=== PATIENT | male | born 1970 | race Asian ===

== ENCOUNTER 2022-03-22 06:41 | Emergency (ER) | payer OTHER ==
[2022-03-22 06:52] VITALS: BP 110/71
[2022-03-22] MEDS ORDERED: ACETAMINOPHEN 500 MG TABLET (FP) PO ONE (07:52)
[2022-03-22] MEDS ORDERED: ACETAMINOPHEN 500 MG TABLET (FP) ONE (08:29)
[2022-03-22 08:56] VITALS: PULSE 94; TEMP 98.4
[2022-03-23 13:07] LABS: SARS-CoV-2 NAA Detected (Not Detected)
== END 2022-03-22 09:08 | disposition home or self-care (01) ==
LOC: JER 06:41
DX: U07.1 COVID-19 (principal); R05.1 Acute cough; J06.9 Acute upper respiratory infection, unspecified
CPT/HCPCS: 87804; 99283-25; C9803-CS; U0003; U0005

== ENCOUNTER 2022-06-05 18:17 | Emergency (ER) | payer OTHER ==
[2022-06-05 19:04] VITALS: BP 117/62; PULSE 103; TEMP 97.7; BMI 33.4
[2022-06-05] MEDS ORDERED: diazePAM 5 MG TABLET PO ONE (21:40)
[2022-06-05] MEDS ORDERED: KETOROLAC TROMETHAMINE 30 MG/1 ML VIAL IM ONE (21:40)
[2022-06-05] MEDS ORDERED: KETOROLAC TROMETHAMINE 30 MG/1 ML VIAL IVPUSH ONE (22:08)
[2022-06-05] MEDS ORDERED: KETOROLAC TROMETHAMINE 30 MG/1 ML VIAL ONE (22:13)
[2022-06-05] MEDS ORDERED: diazePAM 5 MG TABLET ONE (22:13)
[2022-06-05 22:26] LABS: BASO % 0.6 % (0-2.0); EOS % 4.9 % (0-4.5); HEMATOCRIT 44.2 % (35.4-49); HEMOGLOBIN 14.4 GM/dL (11.7-16.9); LYMPH % 28.5 % (8-40); MCH 24.9 pg (25.7-33.7); MCHC 32.7 g/dl (32.0-35.9); MEAN CELL VOLUME 76.3 fl (80-96); MONO % 6.7 % (3.8-10.2); NEUT % 59.3 % (42.8-82.8); PH,URINE 5.5 (5.0-8.0); PLATELET COUNT 292 10^3/uL (134-434); RBC 5.79 M/mm3 (4.00-5.60); URINE APPEARANCE CLEAR; URINE BILIRUBIN NEGATIVE (NEGATIVE); URINE COLOR YELLOW; URINE GLUCOSE (UA) NEGATIVE (NEGATIVE); URINE KETONE TRACE (NEGATIVE); URINE LEUK ESTERASE NEGATIVE (NEGATIVE); URINE NITRITE NEGATIVE (NEGATIVE); URINE PROTEIN NEGATIVE (NEGATIVE); URINE UROBILINOGEN 0.2 mg/dL (0.2-1.0); WHITE BLOOD COUNT 10.3 K/mm3 (4.0-10.0)
[2022-06-05 22:48] LABS: ALBUMIN 3.9 g/dl (3.4-5.0); BLOOD UREA NITROGEN 16.3 mg/dL (7-18)
[2022-06-05 22:52] LABS: BILIRUBIN,TOTAL 0.2 mg/dL (0.2-1); TOT PROT 7.6 g/dl (6.4-8.2)
[2022-06-05] MEDS ORDERED: morphine CARPU-JECT 4 MG/1 ML DISP.SYRIN IVPUSH ONE (22:57)
[2022-06-05] MEDS ORDERED: morphine SULFATE 4 MG/ML VIAL ONE (23:32)
== END 2022-06-06 00:58 | disposition home or self-care (01) ==
LOC: JER 18:17
PROC: 3E0333Z Introduction of Anti-inflammatory into Peripheral Vein, Percutaneous Approach (ICD-10-PCS; principal; 2022-06-05)
PROC: 3E033NZ Introduction of Analgesics, Hypnotics, Sedatives into Peripheral Vein, Percutaneous Approach (ICD-10-PCS; 2022-06-05)
DX: R10.9 Unspecified abdominal pain (principal)
CPT/HCPCS: 36415; 74177-TC; 80053; 81003; 85025; 99285-25; Q9967

== ENCOUNTER 2023-01-08 09:16 | Emergency (ER) | payer OTHER ==
[2023-01-08 09:27] VITALS: BP 135/88; PULSE 102; RESP 18; TEMP 97.6; BMI 32.9
[2023-01-08] MEDS ORDERED: KETOROLAC TROMETHAMINE 30 MG/1 ML VIAL IM ONE (12:02)
== END 2023-01-08 12:33 | disposition home or self-care (01) ==
LOC: JER 09:16 → JERFT 09:16
PROC: 3E023GC Introduction of Other Therapeutic Substance into Muscle, Percutaneous Approach (ICD-10-PCS; principal; 2023-01-08)
DX: B34.9 Viral infection, unspecified (principal)
CPT/HCPCS: 0241U-QW; 99284-25